=== PATIENT | female | born 1940 | race Caucasian/White ===

== ENCOUNTER 2018-06-10 23:18 | Observation (INO) | payer MEDICARE, OTHER ==
[2018-06-11 00:06] LABS: Bilirubin Negative (Negative); Blood, Urine Trace (Negative); Clarity CLEAR (Clear); Glucose, Urine (Dipstick) Negative (Negative); Leukocyte Trace (Negative); Nitrite Negative (Negative); Protein, Urine (Dipstick) Negative (Neg-Trace); Specific Gravity, Urine 1.013 (1.002-1.036); Urobilinogen 0.2 mg/dL (0.2-1.0); pH, Urine 6.5 (5.0-9.0)
[2018-06-11 00:08] LABS: Bacteria/HPF None Seen HPF (None Seen); Hyaline Casts/LPF 0-3 HYALINE CAST LPF (0-3 Hyaline); Pathc Cast-AUWi Flag 0.43 (0-2.49); Squamous Epithelial None Seen HPF (0-3); WBC/HPF 0-3 HPF (0-3)
[2018-06-11 00:44] LABS: #Basophils 0.1 thou/uL (0.0-0.2); #Lymphocytes 0.7 thou/uL (1.20-3.40); #Monocytes 0.6 thou/uL (0.11-0.59); %Basophils 0.3 % (0.0-1.0); %Eosinophils 0.2 % (0.0-10.0); %Monocytes 3.9 % (0.0-10.0); %Neutrophils 90.5 % (42.0-75.0); Hemoglobin 12.4 g/dL (12.0-16.0); Mean Corpuscular HGB CONC 33.1 g/dL (32.0-36.0); Mean Corpuscular Hemoglobin 31.6 pg (27.0-31.0); Mean Corpuscular Volume 95.3 fL (78.0-98.0); Mean Platelet Volume 6.6 fL (7.4-10.4); Platelet Count 317 thou/uL (130-400); RBC Distribution Width 11.4 % (11.5-14.5); Red Blood Cell (RBC) Count 3.92 mill/uL (4.20-5.40); White Blood Cell (WBC) Count 14.4 thou/uL (4.8-10.8)
[2018-06-11 00:47] LABS: PTT 29.2 SEC (22.9-36.1); Prothrombin Time 13.7 SEC (12.0-14.7)
[2018-06-11 01:03] LABS: ALT (SGPT) 14 U/L (8-55); AST (SGOT) 14 U/L (5-34); Albumin 3.9 g/dL (3.4-4.8); Alkaline Phosphatase 68 U/L (40-150); Anion Gap 13 mmol/L (10-20); BUN (Urea Nitrogen) 12 mg/dL (9.8-20.1); Bilirubin, Total 1.2 mg/dL (0.2-1.2); Calc. Creatinine Clearance 0 mL/min (70-130); Calcium 8.5 mg/dL (7.8-10.44); Carbon Dioxide 23 mmol/L (23-31); Chloride 108 mmol/L (98-107); Estimated GFR-MDRD 66; Globulin 2.4 g/dL (2.4-3.5); Glucose 127 mg/dL (83-110); Lipase 17 U/L (8-78); Potassium 3.9 mmol/L (3.5-5.1); Protein, Total 6.3 g/dL (6.0-8.3); Sodium 140 mmol/L (136-145)
--- NOTE | 2018-06-11 08:20 | HP ---
CHIEF COMPLAINT: Right lower quadrant abdominal pain. The computer system is down, many of the records and x-rays are not available for me to look at. HISTORY OF PRESENT ILLNESS: She is a 77-year-old female with a 12-hour history of right lower quadra nt pain associated with nausea, vomiting, low grade fever of 99.8. She has never had this before. S he denies dysuria. PAST MEDICAL HISTORY: Significant for hypertension, gastroesophageal reflux. PAST SURGICAL HISTORY: She has had a laparoscopic cholecystectomy 25 years ago. She has had an open hysterectomy and back surgery. MEDICATIONS: Evista 60 mg in the morning, pantoprazole 40 daily, atorvastatin 40 daily, alprazolam 0 .25 at night, lisinopril 20 mg at night. ALLERGIES: She has no known drug allergies. SOCIAL HISTORY: She is , retired. No tobacco or alcohol. FAMILY HISTORY: Heart disease and multiple myeloma. PHYSICAL EXAMINATION: VITAL SIGNS: She is afebrile, pulse 81, blood pressure 138/82. GENERAL: She is a well-developed, well-nourished female that does not appear to be in any distress. HEENT: Unremarkable. LUNGS: Clear. HEART: Regular rate and rhythm. ABDOMEN: Soft, nondistended. She is tender in the right lower quadrant with percussion tenderness. No Rovsing sign. She reportedly has a CT scan that shows appendicitis. I do not have access to that, nor do I have ac cess to her laboratory. ASSESSMENT: Probable appendicitis. PLAN: Recommend laparoscopic appendectomy. I have discussed the planned procedure as well as risk o f bleeding, infection, injury to bowel, bladder, need to open. She understands and gives informed co nsent.
[2018-06-11] MEDS ORDERED: Bupivacaine 0.25% HCL 30 ML VIAL ONE (11:03)
[2018-06-11] MEDS ORDERED: Bupivacaine/Epinephrine 0.25% 30 ML VIAL ONE (11:03)
[2018-06-11] MEDS ORDERED: Fentanyl 100 MCG/2 ML VIAL ONE (11:09)
[2018-06-11] MEDS ORDERED: Midazolam HCl 2 mg/2 ml Vial ONE (11:48)
[2018-06-11] MEDS ORDERED: Dexamethasone 20 MG/5 ML VIAL ONE (11:50)
[2018-06-11] MEDS ORDERED: Ondansetron HCl/PF 4 MG/2 ML Vial ONE (11:50)
[2018-06-11] MEDS ORDERED: Labetalol HCl 100 MG/20 ML VIAL ONE (11:50)
[2018-06-11] MEDS ORDERED: Lidocaine 1% PF 5 ML VIAL ONE (11:50)
[2018-06-11] MEDS ORDERED: PROPOFOL 200 MG/20 ML VIAL ONE (11:50)
[2018-06-11] MEDS ORDERED: Glycopyrrolate 0.2 MG/ML 5 ML SYRINGE ONE (11:50)
[2018-06-11] MEDS ORDERED: Ketorolac Tromethamine 30 MG/ML VIAL ONE (11:50)
[2018-06-11 12:11] LABS: CKMB 0.7 ng/mL (0-6.6); Troponin I Less than 0.010 ng/mL (< 0.028)
[2018-06-11] MEDS ORDERED: Ondansetron HCl/PF 4 MG/2 ML Vial IVP PRN (13:03)
[2018-06-11] MEDS ORDERED: Promethazine HCl 25 MG/ML VIAL IM PRN (13:03)
[2018-06-11] MEDS ORDERED: Promethazine HCl 25 MG/ML VIAL SLOW IVP PRN (13:03)
[2018-06-11] MEDS ORDERED: Ondansetron HCl/PF 4 MG/2 ML Vial IVP SCH (14:00)
--- NOTE | 2018-06-11 14:52 | CT ---
CT ABDOMEN AND PELVIS WITH IV CONTRAST: HISTORY: Right lower quadrant abdominal pain. FINDINGS: There are minimal dependent changes of the lung bases. A small hiatal hernia is present. The liver, spleen, pancreas, adrenal glands, and right kidney are normal. There are small low-density lesions in the left kidney, likely cysts. The patient is post cholecystectomy. No free air or lymphadenopat hy is seen. The small bowel loops are not abnormally dilated. The appendix is abnormally dilated an d fluid-filled with thickened enhancing wall and periappendiceal inflammatory changes and fluid. The re is sigmoid diverticulosis. There is no evidence of aneurysmal dilatation of the abdominal aorta. There are degenerative changes in the spine. IMPRESSION: Acute appendicitis. Discussed in person with ER physician, Dr. Villarreal at 4:10 a.m. CARISSA CALZADA POS: [facility]
[2018-06-11 15:06] VITALS: BMI 23.3
[2018-06-11 16:40] VITALS: BP 125/68; TEMP 98
[2018-06-11] MEDS ORDERED: Piperacillin/Tazobactam 3.375 GM in Sodium Chloride 0.9% 100 ML IVPB SCH (18:00)
--- NOTE | 2018-06-14 08:59 | OP ---
DATE OF PROCEDURE: 06/11/2018 PREOPERATIVE DIAGNOSIS: Acute appendicitis. POSTOPERATIVE DIAGNOSIS: Acute appendicitis. OPERATION PERFORMED: Laparoscopic appendectomy. SURGEON: Biju Greer M.D. ANESTHESIA: General endotracheal. INDICATIONS: The patient is a 77-year-old white female. She presented with findings typical of appe ndicitis, taken to the operating room at this time for laparoscopic appendectomy. PROCEDURE IN DETAIL: Informed consent was obtained. The patient was taken to the Operating Room whe re general endotracheal anesthesia was obtained with the patient in the supine position. Local anest hetic was infiltrated into the intended incision sites, and 5-mm infraumbilical incision was created. Veress needle was passed into the peritoneal cavity. Pneumoperitoneum was established using carbon dioxide up to a pressure of 15 mmHg. A 5-mm trocar port was passed through the same incision. Lapa roscopic camera was passed through this port. Under direct vision, two additional ports were placed including a 5-mm right subcostal port and a 10/12-mm suprapubic port. Attention was then turned to t he right lower quadrant. After mobilization of bowel, there was obvious evidence of acute appendicit is. The appendix was gently mobilized away from the surrounding structures, and the mesoappendix was grasped. It was divided with the tripolar cautery so as to skeletonize the base of the appendix. T he appendix was then divided with the Endo ERIC stapler to include a small cuff of cecum. Staple line s were intact. The appendix was placed into a laparoscopic pouch and retrieved through the suprapubi c port. The fascia at this port was approximated with 0 Vicryl suture and the Granee needle. Port w as replaced, and the right lower quadrant was inspected. Hemostasis was found to be intact, and the area was irrigated. Staple line was also noted to be intact. All ports and instruments were removed under direct vision. Pneumoperitoneum was carefully evacuated. 0.25% Marcaine with epinephrine was infiltrated into each port site. Skin edges were approximated with 4-0 Prolene subcuticular suture as well as Steri-Strips and Mastisol. Band-aid dressings were applied. There were no complications. The patient tolerated the procedure well and was taken to Recovery in stable condition. FINDINGS: The patient had a clearly inflamed appendix with fibrinopurulent material on the tip of th e appendix. It was curved up along the lateral aspect of the cecum then required mobilization. Ther e was no inflammation at the base of the appendix and therefore Endoloops were safe to use. There wa s essentially no blood loss. There has certainly not been a perforation. There were no complication s. She tolerated the procedure well and was taken to recovery room in stable condition.
--- NOTE | 2018-06-19 10:46 | EKG ---
Test Reason : Blood Pressure : / mmHG Vent. Rate : 081 BPM Atrial Rate : 081 BPM P-R Int : 130 ms QRS Dur : 092 ms QT Int : 392 ms P-R-T Axes : -03 011 034 degrees QTc Int : 455 ms Normal sinus rhythm Normal ECG Confirmed by YOJANA FELIX ([id number]), rewrite editor DAYANNA CRENSHAW ([id number]) on 06/19/2018 10:45:56 AM Referred By: Confirmed By:YOJANA FELIX
== END 2018-06-11 17:29 | disposition home or self-care (01) ==
LOC: ERS 23:18 → SURG A 06-11 01:00
PROVIDERS: ADMIT Surgery; ATTEND Surgery
PROC: 0DTJ4ZZ Resection of Appendix, Percutaneous Endoscopic Approach (ICD-10-PCS; principal; 2018-06-11)
DX: K35.80 Unspecified acute appendicitis (principal); I10 Essential (primary) hypertension; K21.9 Gastro-esophageal reflux disease without esophagitis; Z79.899 Other long term (current) drug therapy; Z79.82 Long term (current) use of aspirin
CPT/HCPCS: 36415; 74177; 80053; 81003; 81015; 82553; 83690; 84484; 85025; 85610; 85730; 86850; 86900; 86901; 87086; 93005; 96360; J2250; J2543; J3010; J7050; S0020

== ENCOUNTER 2018-06-12 05:45 | Inpatient (IN) | payer MEDICARE, OTHER ==
[2018-06-12] MEDS ORDERED: Ondansetron HCl/PF 4 MG/2 ML Vial ONE (06:48)
[2018-06-12 07:29] LABS: ALT (SGPT) 13 U/L (8-55); AST (SGOT) 14 U/L (5-34); Alkaline Phosphatase 73 U/L (40-150); Anion Gap 13 mmol/L (10-20); BUN (Urea Nitrogen) 23 mg/dL (9.8-20.1); Bilirubin, Total 2.4 mg/dL (0.2-1.2); Calc. Creatinine Clearance 0 mL/min (70-130); Calcium 9.1 mg/dL (7.8-10.44); Carbon Dioxide 23 mmol/L (23-31); Chloride 102 mmol/L (98-107); Estimated GFR-MDRD 19; Globulin 2.8 g/dL (2.4-3.5); Glucose 119 mg/dL (83-110); Potassium 4.3 mmol/L (3.5-5.1); Protein, Total 6.8 g/dL (6.0-8.3); Sodium 134 mmol/L (136-145)
[2018-06-12 07:30] LABS: Band 17 % (5-11); Hemoglobin 13.8 g/dL (12.0-16.0); Lymphocytes 11 % (21-51); MDiff Complete? YES; Mean Corpuscular HGB CONC 32.3 g/dL (32.0-36.0); Mean Corpuscular Volume 95.9 fL (78.0-98.0); Mean Platelet Volume 6.4 fL (7.4-10.4); Monocytes 7 % (0-10); Neutrophil 65 % (42-75); Platelet Count 371 thou/uL (130-400); RBC Distribution Width 11.7 % (11.5-14.5); Red Blood Cell (RBC) Count 4.47 mill/uL (4.20-5.40)
[2018-06-12 09:37] LABS: Bilirubin Negative (Negative); Blood, Urine Moderate (Negative); Clarity CLEAR (Clear); Glucose, Urine (Dipstick) Negative (Negative); Leukocyte Moderate (Negative); Nitrite Negative (Negative); Protein, Urine (Dipstick) Negative (Neg-Trace); Specific Gravity, Urine 1.018 (1.002-1.036); Urobilinogen 0.2 mg/dL (0.2-1.0); pH, Urine 5.5 (5.0-9.0)
[2018-06-12 09:39] LABS: Bacteria/HPF None Seen HPF (None Seen)
[2018-06-12 09:40] LABS: Pathc Cast-AUWi Flag 3.77 (0-2.49)
[2018-06-12 09:46] LABS: Hyaline Casts/LPF 0-3 HYALINE CAST LPF (0-3 Hyaline); Manual Microscopic Reviewed? No Path Casts Seen; Renal Epithelial 0-3 HPF (0-3); Transitional Epithelial 0-3 HPF (0-3)
[2018-06-12] MEDS ORDERED: Sodium Chloride 0.9% 100 ML ONE (10:38)
[2018-06-12] MEDS ORDERED: cefTRIAXone\\ROCEPHIN 1 GM VIAL ONE (10:38)
[2018-06-12 12:23] VITALS: BMI 24.3
[2018-06-12] MEDS ORDERED: hydrALAZINE 20 MG/ML VIAL SLOW IVP PRN (14:30)
[2018-06-12] MEDS ORDERED: Ondansetron ODT 4 MG TAB PO PRN (14:30)
[2018-06-12] MEDS ORDERED: traMADol HCl 50 MG TAB PO PRN (14:34)
[2018-06-12] MEDS ORDERED: Acetaminophen 1,000 MG in Premix Bag 1 BAG IVPB SCH (14:45)
[2018-06-12] MEDS ORDERED: Sodium Chloride 0.9% 1,000 ML IV SCH (14:45)
[2018-06-12] MEDS: Sodium Chloride 0.9% 1,000 ML IV SCH ×2 (15:03→23:46)
--- NOTE | 2018-06-12 15:22 | HP ---
HISTORY OF PRESENT ILLNESS: Bisi Gage is a 77-year-old female status post laparoscopic video appen dectomy yesterday by Dr. Spain. The patient lives in [place]. The patient presented to the em ergency room because she felt like she could not urinate. In the emergency room, her bladder scan re vealed about 200-250 mL, a Rosales catheter was placed, receiving that volume. Urine culture was submi tted. Urinalysis revealed high blood count, moderate leukocyte esterase, 11-20 red cells, 4-6 white cells, no bacteria. The patient's white count was noted to be 20. Hemoglobin 13, sodium 134, BUN 23 , creatinine 2.48, potassium 4.3. Patient is admitted for dehydration and acute kidney injury. She states that after surgery yesterday, she took some broth in the hospital, did not drink much at home. She had an episode of emesis in the emergency room, but also a bowel movement. She has nausea. ALLERGIES: None. TOBACCO: None. ALCOHOL: None. MEDICATIONS AT HOME: Lisinopril 20 mg at bedtime, Xanax 0.25 mg at bedtime, calcium 600 mg at bedtim e, aspirin 81 mg at bedtime, vitamin D at bedtime, Lipitor 40 mg at bedtime, tramadol p.r.n., Evista 60 mg daily, Protonix 40 mg daily. PAST SURGICAL HISTORY: Cholecystectomy, hysterectomy, recent appendectomy, lumbar surgery. PAST MEDICAL HISTORY: Hypertension and gastroesophageal reflux disease. SOCIAL HISTORY: The patient lives with her who is in poor health. PHYSICAL EXAMINATION: VITAL SIGNS: 5 feet 5, 145 pounds, 24 BMI, 98.6, 74, 24 respiratory rate, 125/71. HEAD, EYES, EARS, NOSE, AND THROAT: Unremarkable. LUNGS: Clear to auscultation. CARDIAC: Regular rate and rhythm without murmur or gallop. ABDOMEN: Soft, postoperative laparoscopic incisions normal. She has mild distention, mild tympany a nd mild tenderness. EXTREMITIES: Unremarkable. ASSESSMENT AND PLAN: 1. Acute kidney injury secondary to dehydration. We will rehydrate and recheck this. 2. Nausea and vomiting postoperatively, slowly advance diet as tolerated after hydrated.
[2018-06-12] MEDS: Ondansetron HCl/PF 4 MG/2 ML Vial IVP PRN (19:12)
[2018-06-12] MEDS: Famotidine/PF 20 mg/2ml Vial SLOW IVP SCH (20:54)
[2018-06-12] MEDS: ALPRAZolam 0.25 MG TAB PO SCH (20:54)
[2018-06-12] MEDS: Aspirin 81 mg Enteric Coated Tablet PO SCH (20:54)
[2018-06-12] MEDS: Enoxaparin Sodium 30 MG/0.3 ML SYRINGE SC SCH (20:55)
[2018-06-13] MEDS: Acetaminophen 1,000 MG in Premix Bag 1 BAG IVPB PRN ×2 (03:42→11:28)
[2018-06-13 06:32] LABS: #Lymphocytes 1.7 thou/uL (1.20-3.40); #Monocytes 1.1 thou/uL (0.11-0.59); #Neutrophils 9.7 thou/uL (1.40-6.50); %Basophils 0.4 % (0.0-1.0); %Eosinophils 0.2 % (0.0-10.0); %Lymphocytes 13.4 % (21.0-51.0); %Monocytes 8.7 % (0.0-10.0); %Neutrophils 77.4 % (42.0-75.0); Hemoglobin 12.1 g/dL (12.0-16.0); Mean Corpuscular HGB CONC 33.1 g/dL (32.0-36.0); Mean Corpuscular Hemoglobin 31.9 pg (27.0-31.0); Mean Corpuscular Volume 96.4 fL (78.0-98.0); Platelet Count 345 thou/uL (130-400); RBC Distribution Width 11.8 % (11.5-14.5); Red Blood Cell (RBC) Count 3.79 mill/uL (4.20-5.40); White Blood Cell (WBC) Count 12.5 thou/uL (4.8-10.8)
[2018-06-13] MEDS: Sodium Chloride 0.9% 1,000 ML IV SCH ×4 (06:38→21:45)
[2018-06-13 06:58] LABS: Anion Gap 8 mmol/L (10-20); BUN (Urea Nitrogen) 28 mg/dL (9.8-20.1); Calc. Creatinine Clearance 20 mL/min (70-130); Calcium 7.7 mg/dL (7.8-10.44); Carbon Dioxide 22 mmol/L (23-31); Chloride 108 mmol/L (98-107); Estimated GFR-MDRD 19; Glucose 101 mg/dL (83-110); Potassium 3.9 mmol/L (3.5-5.1); Sodium 134 mmol/L (136-145)
--- NOTE | 2018-06-13 07:55 | PRG ---
DATE OF SERVICE: 06/13/2018 SUBJECTIVE: Bisi Gage is feeling better today. She has had a bowel movement. OBJECTIVE: VITAL SIGNS: 98.7 degrees, heart rate 100, 125/80. LUNGS: Clear to auscultation. CARDIAC: Regular rate and rhythm without murmur or gallop. ABDOMEN: Soft. Urine output is acceptable. Laboratory is pending. PLAN: Diet as tolerated. Follow renal function. Continue hydration. Anticipate probable discharge home t omorrow.
[2018-06-13] MEDS ORDERED: Sodium Chloride 0.9% 500 ML IVPB SCH (13:15)
[2018-06-13 14:30] LABS: Bilirubin Negative (Negative); Blood, Urine Large (Negative); Clarity CLOUDY (Clear); Glucose, Urine (Dipstick) Negative (Negative); Leukocyte Trace (Negative); Nitrite Negative (Negative); Protein, Urine (Dipstick) 100 mg/dL (Neg-Trace); Specific Gravity, Urine 1.014 (1.002-1.036); Urobilinogen 0.2 mg/dL (0.2-1.0)
[2018-06-13 14:33] LABS: Bacteria/HPF None Seen HPF (None Seen); Hyaline Casts/LPF 0-3 HYALINE CAST LPF (0-3 Hyaline); Pathc Cast-AUWi Flag 0.14 (0-2.49); RBC/HPF GREATER THAN 50-TNTC HPF (0-3); Transitional Epithelial 0-3 HPF (0-3)
[2018-06-13 14:34] LABS: Renal Epithelial None Seen HPF (0-3)
--- NOTE | 2018-06-13 15:43 | RAD ---
ACUTE ABDOMINAL SERIES WITH FRONTAL VIEW CHEST AND 2 VIEW ABDOMEN: Date: 06/13/18 INDICATION: Abdominal distention. FINDINGS: There is linear oriented left perihilar density. Right lung is clear. No free air is seen. Bowel gas pattern is nonspecific with a paucity of bowel gas. There are cholecystectomy clips seen within the r ight upper abdomen. IMPRESSION: 1. Nonspecific bowel gas pattern. 2. No free air. 3. Left perihilar linear parenchymal density favoring subsegmental atelectasis. This may be followed by 2 view chest series to confirm resolution and exclude the possibility of a central obstructing le marito. CODE T. POS: [facility]
[2018-06-13] MEDS: Ondansetron HCl/PF 4 MG/2 ML Vial IVP PRN (17:42)
[2018-06-13] MEDS: Famotidine/PF 20 mg/2ml Vial SLOW IVP SCH (21:29)
[2018-06-13] MEDS: ALPRAZolam 0.25 MG TAB PO SCH (21:29)
[2018-06-13] MEDS: Aspirin 81 mg Enteric Coated Tablet PO SCH (21:29)
[2018-06-13] MEDS: Enoxaparin Sodium 30 MG/0.3 ML SYRINGE SC SCH (21:29)
[2018-06-14 06:16] LABS: Anion Gap 8 mmol/L (10-20); BUN (Urea Nitrogen) 23 mg/dL (9.8-20.1); Calc. Creatinine Clearance 30 mL/min (70-130); Calcium 7.7 mg/dL (7.8-10.44); Carbon Dioxide 19 mmol/L (23-31); Chloride 113 mmol/L (98-107); Estimated GFR-MDRD 30; Glucose 89 mg/dL (83-110); Potassium 3.8 mmol/L (3.5-5.1); Sodium 136 mmol/L (136-145)
[2018-06-14] MEDS ORDERED: Potassium Chloride 20 MEQ in Lactated Ringer's 1,000 ML IV SCH (10:00)
[2018-06-14] MEDS ORDERED: ISOVUE-370 76%-LOCM 1 ML ONE (10:10)
[2018-06-14] MEDS: Sodium Chloride 0.9% 1,000 ML IV SCH (10:12)
[2018-06-14 10:14] LABS: #Basophils 0.1 thou/uL (0.0-0.2); #Eosinphils 0.1 thou/uL (0.0-0.7); #Lymphocytes 1.3 thou/uL (1.20-3.40); #Monocytes 0.8 thou/uL (0.11-0.59); #Neutrophils 6.4 thou/uL (1.40-6.50); %Basophils 0.7 % (0.0-1.0); %Lymphocytes 14.9 % (21.0-51.0); %Monocytes 9.1 % (0.0-10.0); %Neutrophils 74.3 % (42.0-75.0); Hemoglobin 11.2 g/dL (12.0-16.0); Mean Corpuscular HGB CONC 32.9 g/dL (32.0-36.0); Mean Corpuscular Hemoglobin 31.5 pg (27.0-31.0); Mean Corpuscular Volume 95.9 fL (78.0-98.0); Mean Platelet Volume 6.2 fL (7.4-10.4); Platelet Count 338 thou/uL (130-400); RBC Distribution Width 11.6 % (11.5-14.5); Red Blood Cell (RBC) Count 3.55 mill/uL (4.20-5.40); White Blood Cell (WBC) Count 8.6 thou/uL (4.8-10.8)
[2018-06-14] MEDS: Potassium Chloride 20 MEQ in Lactated Ringer's 1,000 ML IV SCH ×2 (10:58→18:17)
--- NOTE | 2018-06-14 14:17 | CT ---
CONTRAST ENHANCED CT IMAGES OF THE ABDOMEN AND PELVIS: Date: 06-14-18 Comparison: 06-11-18 FINDINGS: Contrast enhanced CT images of the abdomen and pelvis demonstrates small bilateral pleural effusions. No evidence of free intraperitoneal air is seen. A small amount of perihepatic fluid is seen. The liver and spleen is unremarkable. A moderate sized hiatal hernia is present. The liver and spleen are unremarkable. The gallbladder has been surgically removed. The pancreas is unremarkable. Adrenal glands and kidneys are unremarkable. The previously inflamed appendix has been surgically removed. A small amount of free pelvic fluid is seen. A small pocket of gas is seen in the pelvis. A Rosales catheter is seen in the urinary bladder wh ich is decompressed. No evidence of obvious intraabdominal or pelvic abscess is seen. Extensive descending and sigmoid colonic diverticulosis is present. IMPRESSION: 1. Colonic diverticulosis. 2. Small amount of intraabdominal and pelvic fluid. 3. Small bilateral pleural effusions. 4. Small amount of free intraperitoneal air in the pelvis, possibly post-operative. 5. Hiatal hernia. POS: [facility]
--- NOTE | 2018-06-14 16:33 | PRG ---
DATE OF SERVICE: 06/14/2018 SUBJECTIVE: Ms. Gage is postoperative day #3 from her laparoscopic appendectomy. Her surgery was uneventful. She returned to the hospital the day after her surgery. Early in the morning, the night after her surgery, complains of inability to void and abdominal discomfort. At that time, she had d eveloped leukocytosis with a white blood cell count of 20,000 and her creatinine level had jumped fro m 0.83 the day before up to 2.48. She was hydrated with IV fluid and observed over the past couple o f days. Her creatinine by this morning had dropped down to 1.64. Her chloride has gone up somewhat and her CO2 has dropped down a little bit, likely from her normal saline which has been running at 15 0 mL per hour. She had to have a Rosales catheter placed yesterday due to inability to persistent abil ity to void. She put out 1900 mL of urine thereafter. She also had some diarrhea bowel movements ye sterday. She states that she had no further diarrhea after about 11:00 yesterday morning. Stool yared dies on this were negative for Clostridium difficile or any other pathogenic organisms. Today, she tells me that she just generally feels uncomfortable and bloated. She has had minimal augustine etite. She has not vomited since admission to the hospital. PHYSICAL EXAMINATION: VITAL SIGNS: She is afebrile and her maximum temperature is 99.2. Her pulse is between 88 and 95, b lood pressure is normal at 126/79, oxygen saturation is 95% on room air. LUNGS: Clear to auscultation anteriorly. CARDIAC: Regular rate and rhythm without murmur. ABDOMEN: Soft, without focal tenderness in any quadrant. Her 3 laparoscopic incisions appear to be healing appropriately. She has normoactive bowel sounds internally. She does have Rosales catheter in dwelling currently. LABORATORY DATA AND IMAGING DATA: Her CBC reveals that her white blood cell count has dropped down t o 8.6 with essentially a normal differential. Her hemoglobin is 11.2. As mentioned, her creatinine is down to 1.64. X-rays following my evaluation this morning, I have felt that we should check a CT scan to make sure that there was some untoward abnormality. This demonstrates a greater volume of fl uid in the abdomen than I would expect. There also appears to be some fluid within the abdominal wal l. She also has small bilateral pleural effusions. There is no area of obvious inflammatory change anywhere in her abdomen. The bowels all looked appropriately decompressed. ASSESSMENT AND PLAN: She has resolving renal failure. I am not certain what the etiology of this wa s, it is possible that this is entirely prerenal hypovolemia or perhaps this is an unusual reaction w ith medication that she received with her surgery, possibly Toradol. For now, I would not recommend checking the fluid in her abdomen as she seems to be entirely nontender. I have encouraged her to dr ink clear liquids and ambulate. Hopefully, she will be able to void tomorrow after a Rosales catheter was removed. Although there was no indication of this at the time of her surgery, I guess theoretica lly possible that there could have been a bladder damage by suprapubic port and she still cannot void , then a cystogram will need to be obtained.
[2018-06-14] MEDS: Aspirin 81 mg Enteric Coated Tablet PO SCH (20:47)
[2018-06-14] MEDS: ALPRAZolam 0.25 MG TAB PO SCH (20:47)
[2018-06-14] MEDS: Famotidine/PF 20 mg/2ml Vial SLOW IVP SCH (20:48)
[2018-06-14] MEDS: Enoxaparin Sodium 30 MG/0.3 ML SYRINGE SC SCH (20:54)
[2018-06-15] MEDS ORDERED: Acetaminophen 500 MG TAB PO PRN (01:08)
[2018-06-15] MEDS ORDERED: Melatonin 3 MG TAB PO PRN (01:09)
[2018-06-15] MEDS ORDERED: Dicyclomine 20 MG TAB PO SCH (01:15)
[2018-06-15] MEDS: Potassium Chloride 20 MEQ in Lactated Ringer's 1,000 ML IV SCH ×4 (02:16→18:31)
[2018-06-15 06:23] LABS: #Eosinphils 0.1 thou/uL (0.0-0.7); #Lymphocytes 1.7 thou/uL (1.20-3.40); #Monocytes 0.6 thou/uL (0.11-0.59); #Neutrophils 4.4 thou/uL (1.40-6.50); %Basophils 0.7 % (0.0-1.0); %Eosinophils 1.7 % (0.0-10.0); %Lymphocytes 24.9 % (21.0-51.0); %Monocytes 8.6 % (0.0-10.0); %Neutrophils 64.2 % (42.0-75.0); Hemoglobin 10.2 g/dL (12.0-16.0); Mean Corpuscular HGB CONC 33.1 g/dL (32.0-36.0); Mean Corpuscular Hemoglobin 31.6 pg (27.0-31.0); Mean Corpuscular Volume 95.5 fL (78.0-98.0); Mean Platelet Volume 6.7 fL (7.4-10.4); Platelet Count 302 thou/uL (130-400); RBC Distribution Width 11.4 % (11.5-14.5); Red Blood Cell (RBC) Count 3.22 mill/uL (4.20-5.40); White Blood Cell (WBC) Count 6.9 thou/uL (4.8-10.8)
[2018-06-15 06:59] LABS: ALT (SGPT) 8 U/L (8-55); AST (SGOT) 10 U/L (5-34); Albumin 2.5 g/dL (3.4-4.8); Alkaline Phosphatase 47 U/L (40-150); Anion Gap 8 mmol/L (10-20); BUN (Urea Nitrogen) 7 mg/dL (9.8-20.1); Bilirubin, Total 0.9 mg/dL (0.2-1.2); Calc. Creatinine Clearance 69 mL/min (70-130); Calcium 7.7 mg/dL (7.8-10.44); Carbon Dioxide 23 mmol/L (23-31); Chloride 109 mmol/L (98-107); Estimated GFR-MDRD 81; Globulin 1.9 g/dL (2.4-3.5); Glucose 84 mg/dL (83-110); Potassium 3.6 mmol/L (3.5-5.1); Protein, Total 4.4 g/dL (6.0-8.3); Sodium 136 mmol/L (136-145)
--- NOTE | 2018-06-15 09:18 | PRG ---
DATE OF SERVICE: 06/15/2018 Ms. Gage is postoperative day #4 from her laparoscopic appendectomy. She noted that she was feelin g better yesterday with a Rosales catheter in place. She was tolerating her liquid diet and ambulating regularly. Yesterday, a CT scan was obtained, which revealed more fluid than anticipated within her abdomen. There was no evidence of acute inflammatory process. This morning, her Rosales catheter was removed and she feels as though she is "filling up again." She does not feel as well as she did yes terday. PHYSICAL EXAMINATION: VITAL SIGNS: On examination, she is afebrile, pulse is 76, blood pressure is 150/80. LUNGS: Clear to auscultation. ABDOMEN: Mildly distended. There is hypoactive bowel sounds present. Incisions are healing nicely. There is no focal area of tenderness on examination. LABORATORY STUDIES: Reveal that her white blood cell count is normal at 6.9 with a normal differenti al, hemoglobin is 10.2. Her electrolytes are essentially normal. Her BUN and creatinine dropped fro m 23 and 1.6 yesterday, down to 7 and 0.7 today. ASSESSMENT: She is still having an atypical course following her laparoscopic appendectomy. Her Fol ey catheter has been removed and we will see if she can void today. If she cannot, then a Rosales cath eter will be replaced and I will obtain a cystogram either as a plain film or a CT scan to better andrea luate her bladder. PLAN: I have discussed this with the patient. She understands and agrees to proceed in this fashion .
[2018-06-15] MEDS ORDERED: Iopamidol 370 76% 50 ML VIAL FS ONE (15:58)
[2018-06-15] MEDS ORDERED: Iopamidol 370 76% 100 ML VIAL ONE (15:58)
--- NOTE | 2018-06-15 15:58 | CT ---
CT PELVIS WITH AND WITHOUT CONTRAST: 06/15/18 HISTORY: Evaluate for rupture. COMPARISON: CT prior day. FINDINGS: On the precontrast image there is increased free intraperitoneal gas. There is also increased free in traperitoneal fluid. After retrograde instillation of contrast through the urinary bladder, there is intraperitoneal contrast. There is also some contrast within the anterior space of Retzius. The defe ct is in the left side of the bladder dome seen best on axial image 32 and coronal image 55. IMPRESSION: Large defect of the bladder dome left side of midline, axial 32, coronal image 55, with intraperitone al contrast extravasation and increase in the intraperitoneal gas. CODE: CR. Dr. Greer POS: [facility]
[2018-06-15] MEDS ORDERED: Cefepime 2 GM in Sodium Chloride 0.9% 100 ML IVPB SCH (20:00)
[2018-06-15] MEDS: Aspirin 81 mg Enteric Coated Tablet PO SCH (20:27)
[2018-06-15] MEDS: Enoxaparin Sodium 30 MG/0.3 ML SYRINGE SC SCH (20:28)
[2018-06-15] MEDS: Famotidine/PF 20 mg/2ml Vial SLOW IVP SCH (20:28)
[2018-06-15] MEDS: ALPRAZolam 0.25 MG TAB PO SCH (21:45)
--- NOTE | 2018-06-15 23:58 | CON ---
DATE OF CONSULTATION: 06/15/2018 HISTORY OF PRESENT ILLNESS: This is a 77-year-old white female who on the that be 5 days ago wa s admitted with a right lower quadrant pain and a CAT scan showing appendicitis on the . She und erwent a laparoscopic appendectomy by Dr. Greer, so this would have been 4 days ago that was on Thu. She went home that day and was not doing well at home. She had difficulty with urination and s ome abdominal bloating, things became problematic enough that she returns to the ER later that night that would have been on the . She threw up in the emergency room, she was found to have an eleva jessica white blood cell count and her creatinine has gone up to about 2.5 well above her normal baseline than the creatine that she had prior to surgery. She was complaining of problems with urination nabeel t she said she had not really been able to urinate since she was at home and a catheter was placed. It does not appear that she had a great deal of volume perhaps 200-250 mL from the bladder when the c atheter was placed. Urinalysis did show a few white cells, no bacteria, and 11-20 red cells and the catheter was not left in. She was admitted to the floor, given IV fluids, the thought being that may be she was dehydrated and having some prerenal azotemia. The next day, which I think would have been the Thursday, she was in and out catheterization she believes 2-3 times and still unable to urinate, w as becoming more distended yesterday which was Thursday, catheter was replaced and left in. She had a CAT scan done that day that on review shows catheter being in the bladder, there is some perihepatic fluid a small amount. There is a small amount of free pelvic fluid and there is a little bit of gas in the pelvis. There is no abscess noted. Catheter was left in through the night and removed this m orning around 6 and after it was removed as the morning went on, she again developed abdominal disten tion and at that point that a catheter was placed and she had a CT cystogram done which I reviewed wi th Dr. Hunter. She does have an intraperitoneal bladder leak. It appears to be coming from the lef t anterior area of the dome. It does not appear to be a big leak, there was fair amount of contrast in around the abdominal wall, but it does not appear that the leak itself is that big. In talking wi th Dr. Greer, he feels this is likely just from one of the port sites which I guess are 16 mm in di ameter, so this is not a really large leak. She has had a catheter in since that time she is feeling a bit better today with a catheter in less pain, less abdominal distention, but she still has very p oor appetite, not really had anything to eat or drink short of a little bit of juice for the last 2 o r 3 days. He provides no prior history of difficulty with urination. She has had occasional bladder infections, but not for a number of years. She did have a hysterectomy and bladder suspension, a nu mber of years ago. She has had a back surgery done a number of years ago. She has had no pelvic rad iation or pelvic cancer. She is not on steroids. She had laparoscopic cholecystectomy a number of y ears ago. Her medical disease otherwise includes hypertension and reflux disease and some osteopenia . She takes Evista, she takes lisinopril, she takes atorvastatin and she takes a little bit of Xanax to help with sleep. ALLERGIES: She has no known drug allergies. SOCIAL HISTORY: She does not smoke, she does not drink. PHYSICAL EXAMINATION: VITAL SIGNS: Currently, her room air sat is 94-96%. Her pulse is down in the 70s. She has been afe brile, blood pressure is really pretty good. She is slightly hypertensive 165/93 about noon and then 159/90 a couple of hours ago. LABORATORY DATA: Her white blood cell count this morning was 6.9, hemoglobin is 10.2. Her creatinin e has come down to 0.7 this morning and as mentioned, her urinalysis shows red cells, few white cells , no bacteria. Urine culture that was done through the emergency room on the is no growth. A u rine culture from the Rosales catheter on the showed a presumptive Pseudomonas and that is a preli minary culture so that when is still pending. Urine culture from the , which was 2 days ago, dong wed no growth at 48 hours. Looking at her medication record, she is on Levaquin and it appears that that was started today. On her CAT scan, her kidneys looked okay. CAT scan of the pelvis today did not show them but on the yojana or CAT scans, kidneys looked okay. There is no evidence of kidney stones or hydronephrosis. There w ere some small hypodensities in the left kidney, most likely cysts. PHYSICAL EXAMINATION: ABDOMEN: She has no flank tenderness. Her abdomen is soft. There is some mild abdominal tenderness , but no rebound, no guarding, no masses felt. Her catheter is draining clear urine. She does have some lower extremity edema, but she does not have anything to suggest a deep vein thrombosis. IMPRESSION AND PLAN: Bladder injury, most likely with the trocar at the time of her appendectomy 4 d ays ago. She had a catheter in and out for a few hours a day or so as well as some in and out cathet erization. Her creatinine is normalized. Urine is clear. It does not appear septic. She is not on an antibiotic. I think for the time being, I would change this catheter out to a bigger diameter ca theter and will do that this evening. I will let her drink some liquids if she wishes to up until or dnight, but make her n.p.o. after midnight and depending on how she is doing tomorrow how she is feel ing and what her vital signs are doing, make a decision about whether we should open her up and wash her out and repair this small trocar site. I think if she is steadily improving that there is an exc ellent chance that with 10-14 days of catheter drainage, this will close on its own and it would say for another procedure, I think the main risk would be as she is developing anything that would sugges t intraabdominal abscess or peritonitis not responding to antibiotics, so we will check her carefully tomorrow and make her n.p.o. after midnight. I will discuss this with Dr. Greer.
[2018-06-16] MEDS: Potassium Chloride 20 MEQ in Lactated Ringer's 1,000 ML IV SCH ×2 (03:30→16:01)
[2018-06-16 05:02] LABS: #Basophils 0.1 thou/uL (0.0-0.2); #Eosinphils 0.3 thou/uL (0.0-0.7); #Lymphocytes 1.2 thou/uL (1.20-3.40); #Monocytes 0.7 thou/uL (0.11-0.59); #Neutrophils 4.4 thou/uL (1.40-6.50); %Basophils 0.8 % (0.0-1.0); %Lymphocytes 18.7 % (21.0-51.0); %Neutrophils 66.5 % (42.0-75.0); Hemoglobin 10.6 g/dL (12.0-16.0); Mean Corpuscular HGB CONC 32.9 g/dL (32.0-36.0); Mean Corpuscular Hemoglobin 31.2 pg (27.0-31.0); Mean Platelet Volume 6.4 fL (7.4-10.4); Platelet Count 347 thou/uL (130-400); RBC Distribution Width 11.4 % (11.5-14.5); Red Blood Cell (RBC) Count 3.38 mill/uL (4.20-5.40); White Blood Cell (WBC) Count 6.7 thou/uL (4.8-10.8)
[2018-06-16] MEDS ORDERED: Potassium Chloride 20 MEQ in Lactated Ringer's 1,000 ML IV SCH (08:00)
[2018-06-16 15:52] VITALS: BP 154/84; TEMP 98.5
== END 2018-06-16 18:00 | disposition home or self-care (01) | DRG 920 ==
LOC: ERS 05:45 → SURG A 11:58
PROVIDERS: ADMIT Internal Medicine; ATTEND Internal Medicine
DX: N99.71 Accidental puncture and laceration of a genitourinary system organ or structure during a genitourinary system procedure (principal); N17.9 Acute kidney failure, unspecified; N39.0 Urinary tract infection, site not specified; E86.0 Dehydration; R33.9 Retention of urine, unspecified; Z98.890 Other specified postprocedural states; R11.2 Nausea with vomiting, unspecified; R19.7 Diarrhea, unspecified; R60.9 Edema, unspecified; I10 Essential (primary) hypertension; K21.9 Gastro-esophageal reflux disease without esophagitis; Z90.710 Acquired absence of both cervix and uterus; Z79.82 Long term (current) use of aspirin; Y81.3 Surgical instruments, materials and general- and plastic-surgery devices (including sutures) associated with adverse incidents
CPT/HCPCS: 36415; 51702; 72194; 74022; 74177; 80048; 80053; 81001; 81003; 81015; 82553; 83630; 83690; 84484; 85025; 85610; 85730; 86850; 86900; 86901; 87045; 87046; 87077; 87086; 87186; 87324; 87449; 87899; 88304; 93005; 96360; 96361; 96365; 96375; J0131; J0692; J0696; J1100; J1650; J1885; J1956; J2001; J2250; J2405; J2543; J2704; J3010; J3480; J7050; J7120; S0020; S0028

== ENCOUNTER 2018-06-22 09:38 | Outpatient (CLI) | payer MEDICARE ==
[2018-06-22] MEDS ORDERED: ISOVUE-370 76%-LOCM 1 ML ONE (11:14)
--- NOTE | 2018-06-22 13:02 | RAD ---
CYSTOGRAM: Indications: Bladder injury during surgery. Follow up to assess for bladder integrity. Patient has an indwelling Rosales catheter. FINDINGS: The bladder was filled with iodinated contrast retrograde under fluoroscopic observation via an indwe lling Rosales catheter. The bladder is distended. There is no evidence of extravasation of mucosal tear . Mild bladder wall trabeculation. The bladder was emptied under fluoroscopic observation. The bladder appears unremarkable. IMPRESSION: No evidence of extravasation or bladder wall injury. POS: [facility]
== END 2018-06-22 09:39 | disposition home or self-care (01) ==
LOC: RAD 09:38
PROVIDERS: ATTEND Urology
DX: S37.20XA Unspecified injury of bladder, initial encounter (principal)
CPT/HCPCS: 51600; 74430